=== PATIENT | male | born 1995 | race Caucasian/White ===

== ENCOUNTER 2018-05-26 10:11 | Emergency (ER) | payer OTHER ==
--- NOTE | 2018-05-26 10:27 | ED ---
Psychiatric Complaint - HPI Summary HPI Summary: This patient is a 22 year old M drove to [facility] with a chief complaint of high level current obsessive anxiety that is relatively new for him. He is recently stressed about relationships and sexual orientation that is worsened by school stress resulting in poor sleep. He reports decreased academic performance this year. He additionally reports recent marijuana cessation, as it is worsening his anxiety. Patient reports binge drinking and e-cigarette use. Patient denies SI/HI. Patients mother called due to concern for school pressure and denies implications of SI/HI. [facility] and [facility] is currently closed. Patient has no other symptoms at this time and denies PMHx, except for previous finger surgery. - History Of Current Complaint Chief Complaint: EDPsychosocial Time Seen by Provider: 05/26/18 10:19 Hx Obtained From: Patient Onset/Duration: Gradual Onset Timing: Constant Severity Initially: Severe Character: Anxious Aggravating Factor(s): Recent Stress Alleviating Factor(s): Nothing Associated Signs And Symptoms: Positive: Negative Has Suicidal: Denies: Thoughts Has Homicidal: Denies: Thoughts - Allergies/Home Medications Allergies/Adverse Reactions: Allergies Allergy/AdvReac Type Severity Reaction Status Date / Time No Known Allergies Allergy Verified 05/26/18 10:18 PMH/Surg Hx/FS Hx/Imm Hx Cardiovascular History: Denies: Hx Hypertension Respiratory History: Denies: Hx Asthma Opthamlomology History: Denies: Hx Legally Blind EENT History: Denies: Hx Deafness - Surgical History Surgery Procedure, Year, and Place: "finger surgery" Infectious Disease History: No Infectious Disease History: Denies: Traveled Outside the [place] in Last 30 Days - Family History Known Family History: Positive: Other Family History: mental health history in sister - Social History Occupation: Student Lives: Dormitory/Roommates Alcohol Use: Weekly Alcohol Amount: binge use Hx Substance Use: Yes Substance Use Type: Reports: Marijuana Substance Use Comment - Amount & Last Used: "two times in last 4 months" Hx Tobacco Use: Yes - JUUL Type: Marian Review of Systems Positive: Fatigue. Negative: Fever Positive: Anxious All Other Systems Reviewed And Are Negative: Yes Physical Exam - Summary Physical Exam Summary: Appearance: Ill-appearing, moderate pain distress, well-nourished Skin: Warm, color reflects adequate perfusion, dry Head: Normal Head/Face inspection, atraumatic Eyes: Conjunctiva clear ENT: Normal inspection Neck: Supple, no nodes, no JVD Respiratory: Lungs clear, normal breath sounds, no respiratory distress Cardio: RRR, No murmur, pulses normal, brisk capillary refill Abdomen: Soft, nontender Bowel sounds: Present Musculoskeletal: Strength Intact/ROM intact, no calf tenderness, no edema. Psychological: Normal Neuro: Alert, muscle tone normal, no focal deficit Triage Information Reviewed: Yes Vital Signs On Initial Exam: Initial Vitals Temp Pulse Resp BP Pulse Ox 98.0 F 72 16 125/67 99 05/26/18 10:13 05/26/18 10:13 05/26/18 10:13 05/26/18 10:13 05/26/18 10:13 Vital Signs Reviewed: Yes Diagnostics - Vital Signs Vital Signs Temp Pulse Resp BP Pulse Ox 05/26/18 10:13 98.0 F 72 16 125/67 99 - Laboratory Result Diagrams: 05/26/18 11:06 05/26/18 11:06 Lab Statement: Any lab studies that have been ordered have been reviewed, and results considered in the medical decision making process. Re-Evaluation - Re-Evaluation First Eval Re-Evaluation Time: 13:15 Change: Improved Comment: Feels better. Agrees with discharge. Course/Dx - Course Course Of Treatment: 22 year old M drove to [facility] with a chief complaint of high level current obsessive anxiety that is relatively new for him. He is recently stressed about relationships and sexual orientation that is worsened by school stress resulting in poor sleep. Patient reports binge drinking and e- cigarette use. Patient denies SI/HI. Patients mother called due to concern for school pressure and denies implications of SI/HI. Bloodwork reveals glucose of 108. UA reveals 1+ proteins, 1+ ketones. Toxicology reports obtained and are negative. Patient is medically cleared at 1206. Patient's mental health cancer genetics assistant informed that patient will be discharged and will be given contact information for [facility] and [facility] mental health services. - Differential Dx/Clinical Impression Differential Diagnosis/HQI/PQRI: Positive: Anxiety, Bipolar Disorder, Depression Provider Diagnosis: Anxiety disorder - Physician Notifications Discussed Care Of Patient With: Joao Broussard RN, pt may be discharged. Time Discussed With Above Provider: 13:15 Discharge - Sign-Out/Discharge Documenting (check all that apply): Patient Departure - discharge to [facility] - Discharge Plan Condition: Stable Disposition: HOME Patient Education Materials: Generalized Anxiety Disorder (ED) Referrals: [facility] [[facility], APPLICATION, OTHER] - 2 Days - Attestation Statements Document Initiated by Scribe: Yes Documenting Scribe: Macy Melton Provider For Whom Scribe is Documenting (Include Credential): Laney Collins MD Scribe Attestation: Macy Vick, scribed for Laney Collins MD on 05/26/18 at 2213.
[2018-05-26 11:14] LABS: ABS Basophils 0 10^3/ul (0-0.2); ABS Eosinophils 0 10^3/ul (0-0.6); ABS Lymphocytes 1.1 10^3/ul (1.0-4.8); ABS Monocytes 0.4 10^3/ul (0-0.8); ABS Neutrophils 4.4 10^3/ul (1.5-7.7); ABS Nucleated RBC 0 10^3/ul; Eosinophil % 0.4 %; Hematocrit 41 % (36-46); Hemoglobin 14.1 g/dL (14.0-18.0); Lymphocyte % 17.9 %; Mean Corpuscular HGB Conc 34 g/dL (31-36); Mean Corpuscular Hemoglobin 30 pg (27-31); Mean Corpuscular Volume 87 fL (80-94); Mean Platelet Volume 8.4 fL (7.4-10.4); Nucleated Red Blood Cells % 0.1; Platelet Count 270 10^3/uL (150-450); Red Blood Count 4.72 10^6 /uL (4.18-5.48); Red Cell Distribution Width 13 % (10.5-15); White Blood Count 5.9 10^3/uL (3.5-10.8)
[2018-05-26 11:33] LABS: ALT 23 U/L (7-52); AST 16 U/L (13-39); Albumin 4.8 g/dL (3.2-5.2); Albumin/Globulin Ratio 1.8 (1-3); Alkaline Phosphatase 84 U/L (34-104); Anion Gap 5 mmol/L (2-11); BUN/Creatinine Ratio 14.8 (8-20); Blood Urea Nitrogen 13 mg/dL (6-24); CO2 Carbon Dioxide 29 mmol/L (22-32); Calcium 9.9 mg/dL (8.6-10.3); Chloride 104 mmol/L (101-111); Creatine Kinase 99 U/L (10-223); EGFR African American 132.3 (>60); EGFR Non-African American 109.3 (>60); Globulin 2.6 g/dL (2-4); Glucose 108 mg/dL (70-100); Potassium 4.3 mmol/L (3.5-5.0); Sodium 138 mmol/L (135-145); Total Protein 7.4 g/dL (6.4-8.9)
[2018-05-26 12:01] LABS: Acetaminophen < 15 mcg/mL; Alcohol < 10 mg/dL (<10); Salicylate < 2.50 mg/dL (<30)
[2018-05-26 12:49] LABS: Urine Appearance Cloudy; Urine Bacteria Absent (Absent); Urine Bilirubin Negative (Negative); Urine Blood Negative (Negative); Urine Color Yellow; Urine Glucose Negative (Negative); Urine Ketones 1+ (Negative); Urine Nitrite Negative (Negative); Urine Protein 1+(30 mg/dL) (Negative); Urine Red Blood Cell Trace(0-2/hpf) (Absent); Urine Specific Gravity 1.026 (1.010-1.030); Urine Urobilinogen Negative (Negative); Urine White Blood Cell Trace(0-5/hpf) (Absent)
[2018-05-26 12:56] LABS: Urine Benzodiazepine Screen None Detected (None Detect); Urine Opiates Screen None Detected (None Detect)
[2018-05-26 13:32] VITALS: BP 107/68
== END 2018-05-26 13:32 | disposition home or self-care (01) ==
LOC: ED 10:11
DX: F41.9 Anxiety disorder, unspecified (principal); F17.290 Nicotine dependence, other tobacco product, uncomplicated
CPT/HCPCS: 36415; 80053; 80307; 80320; 80329; 81003; 81015; 82550; 84443; 85025; 87086; 99284; G0480